=== PATIENT | female | born 1975 | race Caucasian/White ===

== ENCOUNTER → 2021-08-30 | Outpatient (CLI) | payer OTHER ==
[~2021-08-30] MED LIST: AMOCLA875 PO; AMOX875; CHLGLU.12S MT; HYDACE5 PO; PENVK500 PO; PRED20 PO; RXHYDACE PO
== END | disposition home or self-care (01) ==
LOC: LAB 13:45 → LAB SHORT 13:45
DX: L57.0 Actinic keratosis (principal)
CPT/HCPCS: 88305